=== PATIENT | female | born 1950 | race Caucasian/White ===

== ENCOUNTER → 2020-05-02 | Outpatient (CLI) | payer MEDICARE, OTHER ==
--- NOTE | 2020-05-02 10:46 | ST Modified Barium Swallow ---
Recommendation - Recommendations Recommendations: SUMMARY: MBSS within normal limits, no deficits observed at any stage of swallow. RECOMMENDATIONS: Follow up with referring physician, Dr. Christian Colbert. Medical Diagnoses - Medical Diagnoses Medical Diagnosis Description & ICD-10 Code(s): Dysphagia Other Medical Diagnoses/Co-Morbidities: Bladder condition, acid reflux reported by patient. - ICD-10 Tx Diagnosis Coding (1) Dysphagia ICD-10 Code(s): R13.10 - DYSPHAGIA, UNSPECIFIED ST Modified Barium Swallow - General Date: 05/02/20 Referring Physician: Dr. Christian Colbert Risks/Precautions: None Date of Onset: 10/20/19 - Patient reports ongoing issue for "several years" Reason for Referral: Dysphagia - History History obtained from: Patient -: Medical - Patient reports hard to breathe and feels throat "closing up a little bit". She reports symptoms are worse when eating. She reports food will "get caught" 1-2x/week but that swallow feels more effortful daily. Medications: Naproxen, Omeprazole, Detrol [place]. Allergies: Pollen. Adverse reaction with codeine - slows down heart rate and she will pass out. - Functional Status Prior Functional Status: INDEPENDENT: feeding Current Functional Limitations: feeding - Subjective Patient/caregiver goal(s): safe swallow Cognitive-Linguistic Function: WNL Speech Intelligibility: WNL Current Nutritional Means: PO Pain: Patient reports, 0/5 - Objective Assessment: Upright, Left Lateral - Food Trials Used Food trials used: Thin liquids, Pureed, Soft solids The patient: Was Able to Self Feed - Oral-Motor Skills Dentition: Full - Assessment Oral prep: Normal Oral stage: Normal for this Procedure - Pharyngeal Stage Initiation of Pharyngeal Stage Reflex: Normal Decreased laryngeal elevation: No Reduced Velopharyngeal Closure: no Reduced pressure generation: No reduced tongue-based retraction: No Pre-swallow pooling in valleculae: None Pre-Swallow pooling in pyriforms: None Reduced epiglottic excursion: No Reduced pharyngeal peristalsis/contraction: No Post-swallow residulas vallecular: None Post-Swallow residuals in pyriforms: None Post-Swallow Residuals: no residuals Reduced Cricopharyngeal opening: No - Esophageal Stage Cricopharyngeal Function: Normal - Fall Risk Assessment Medications/Conditions that increase fall risks include: Antidepressants, sedatives, anti-arrhythmic, diuretic, benzodiazipenes, neuroleptics. BP regulation problems, cardiac problems, balance or gait deficits, neurological problems. Is patient considered at risk for falls: no Fall Risk Actions Taken: No action needed - Behavioral Observations During evaluation process patient: was pleasant, was cooperative, provided medical history - Treatment / Educational Needs: Treatment/Education Needs: Treatment consisted of patient education on the role of the Speech Pathologist. Patient's plan of care and golas were communicated as well as scheduling and attendance policies. Recommendations for initial home program were shared. Patient demonstrated understanding and verbalized agreement. - Impression/Summary Laryngeal Penetration: No Tracheal Aspiration: no Patient presents with: Normal swallow at eval - Recommendations Solid diet recommendations: Regular Liquid Diet Modification: Thin Pt/Family education and followup with MD: Yes Dysphagia therapy with SOLUTIONS MANAGER: no - not indicated Information, Precautions and Recommendations: Patient (Verbal) - Education on general sensation of GI tract and difficulty localizing sensation (e.g. may feel in throat but may be lower) and that sticking sensation or globuls does not always indicate food or liquid stuck. Patient reported that MD had already discussed possibility that reflux could be responsible and she has follow up scheduled with MD. - Plan of Care Patient to follow-up with referring physician: Yes POC Procedures/Codes: pt/family education, MBSS ([id number]) Strategies to optimize patient understanding include:: ongoing assessment of educational needs, implementation of educational strategies, and re-education. - - -: Thank you for the opportunity to work with this patient and his/her family. Should you have any questions about this patient's plan or progress, I can be reached at [phone].
--- NOTE | 2020-05-02 10:57 | RADIOLOGY REPORT (SQ) ---
EXAM DESCRIPTION: COOKIE SWALLOW IMAGES COMPLETED DATE/TIME: 05/02/2020 10:07 am REASON FOR STUDY: PHARRYNESOPHAGEAL DYSPHAGIA R13.14 DYSPHAGIA, PHARYNGOESOPHAGEAL PHASE globus sen sation choking COMPARISON: None. TECHNIQUE: Videofluoroscopic swallowing examination was performed in conjunction with speech patholo gy. Videofluoroscopic imaging was obtained and reviewed and these are the findings: RADIATION DOSE: 44 seconds of fluoroscopy was used Multiple fluoroscopic images saved to PACS. LIMITATIONS: None FINDINGS: The patient was brought into the fluoro room and placed upright on a modified barium swall ow chair. The patient was then given multiple consistencies mixed with barium to swallow under live fluoroscopic video guidance. According to the Speech Pathologist there was no penetration or aspirat ion. Multiple level cervical osteophytes causing mild impression upon the proximal posterior esophagu s. IMPRESSION: NO EVIDENCE OF PENETRATION OR ASPIRATION. MULTIPLE CERVICAL OSTEOPHYTES CAUSING IMPRESS ION UPON THE PROXIMAL ESOPHAGUS. PLEASE SEE SPEECH PATHOLOGIST REPORT FOR OTHER FINDINGS AND RECOMMEN DATIONS. COMMENT: Quality ID [id number]: Final reports for procedures using fluoroscopy that document radiation exp osure indices, or exposure time and number of fluorographic images (if radiation exposure indices are not available) TECHNICAL DOCUMENTATION: JOB ID: [id number] 2010 [employer]- All Rights Reserved Reading location - IP/workstation name: [email or web address] [id number]
== END ==
LOC: RAD 08:56
PROVIDERS: ATTEND Family Medicine
DX: R13.14 Dysphagia, pharyngoesophageal phase (principal)
CPT/HCPCS: 74230